=== PATIENT | male | born 1970 | race African-American/Black ===

== ENCOUNTER 2019-03-27 09:27 | Observation (INO) | payer MEDICARE, MEDICAID ==
[2019-03-27 10:03] LABS: #Lymphocytes 0.8 thou/uL (1.20-3.40); #Monocytes 0.2 thou/uL (0.11-0.59); %Eosinophils 0.1 % (0.0-10.0); %Lymphocytes 16.4 % (21.0-51.0); %Monocytes 3.3 % (0.0-10.0); %Neutrophils 80.1 % (42.0-75.0); Hemoglobin 13.4 g/dL (14.0-18.0); Mean Corpuscular HGB CONC 32.2 g/dL (32.0-36.0); Mean Corpuscular Hemoglobin 29.4 pg (27.0-31.0); Mean Corpuscular Volume 91.2 fL (78.0-98.0); Mean Platelet Volume 7.6 fL (7.4-10.4); Platelet Count 229 thou/uL (130-400); RBC Distribution Width 13.4 % (11.5-14.5); Red Blood Cell (RBC) Count 4.55 mill/uL (4.70-6.10); White Blood Cell (WBC) Count 5.1 thou/uL (4.8-10.8)
[2019-03-27 10:26] LABS: ALT (SGPT) 90 U/L (8-55); AST (SGOT) 66 U/L (5-34); Alkaline Phosphatase 211 U/L (40-150); Anion Gap 13 mmol/L (10-20); BUN (Urea Nitrogen) 24 mg/dL (8.9-20.6); Bilirubin, Total 0.4 mg/dL (0.2-1.2); Calc. Creatinine Clearance 0 mL/min (70-130); Calcium 10.3 mg/dL (7.8-10.44); Carbon Dioxide 28 mmol/L (22-29); Chloride 103 mmol/L (98-107); Estimated GFR-MDRD 60; Globulin 3.8 g/dL (2.4-3.5); Glucose 190 mg/dL (70-105); Potassium 3.7 mmol/L (3.5-5.1); Protein, Total 7.8 g/dL (6.0-8.3); Sodium 140 mmol/L (136-145)
--- NOTE | 2019-03-27 11:23 | RAD ---
XR Chest 1 View Portable History: Chest pain Comparison: Radiograph 2016 of the abdomen Findings: Lungs are markedly hypoinflated. Likely gaseous distention of the large bowel and less like ly free intraperitoneal gas. No pneumothorax. No effusion. Impression: 1. Hypoinflation with vascular crowding and bibasilar atelectasis. 2. Likely largely distended gaseous filled loops of large bowel and stomach and less likely free intr aperitoneal gas. If there is concern, CT recommended.
[2019-03-27] MEDS ORDERED: Lorazepam 2 MG/ML VIAL ONE (11:32)
--- NOTE | 2019-03-27 12:37 | CT ---
CT BRAIN: DATE: 03/27/2019. PROVIDED CLINICAL HISTORY: Altered mental status. FINDINGS: No comparisons. The ventricular system appears normal in size and morphology. There is no evidence for intracranial hemorrhage or mass effect. The extracranial soft tissues and osseous structures dem onstrate an unremarkable CT appearance. IMPRESSION: No evidence for an intracranial hemorrhage or mass effect. POS: OFF
--- NOTE | 2019-03-27 13:52 | ULT ---
Right upper quadrant sonogram HISTORY: Abnormal liver function tests. FINDINGS: Extensive patient motion and combativeness precludes effective imaging. Liver not well deli neated. Gallbladder not visualized. IMPRESSION: Nondiagnostic exam. CT might be considered based on patient's inability to cooperate.
[2019-03-27] MEDS ORDERED: Piperacillin/Tazobactam 4.5 GM VIAL ONE (14:48)
[2019-03-27] MEDS ORDERED: Lorazepam 2 MG/ML VIAL SLOW IVP PRN (15:21)
[2019-03-27] MEDS ORDERED: Ondansetron ODT 4 MG TAB PO PRN (15:21)
[2019-03-27] MEDS ORDERED: Acetaminophen 325 MG TAB PO PRN (15:21)
--- NOTE | 2019-03-27 16:08 | HP ---
PRIMARY CARE PROVIDER: Tiago Robin DO [facility] I have discussed the patient's situation with the [employer] tree [employer] worker. He is severely mentally challenged. He apparently this morning had spells of eyes rolled back, shaking and falling out of his chair x2. He was transferred here and evaluated. He is nonverbal, gives no history, and is aggressively resistant to physical examination. PAST MEDICAL HISTORY: Pertinent for hypertension, mental retardation, and hypothyroidism. On pravastatin. PAST SURGICAL HISTORY: Unknown. SOCIAL HISTORY: Nontobacco user, nonalcohol user, in a care facility with caregivers. I have nobody to assist me with resuscitation status, therefore, he is full code. CURRENT MEDICATIONS: 1. Loratadine 10 mg a day. 2. Levothyroxine 50 mcg a day. 3. Atenolol 25 mg a day. 4. Colace 100 mg a day. 5. Pravastatin 20 mg a day. 6. Amitiza 24 mcg, unknown dose and unknown frequency. ALLERGIES: HE IS LISTED ALLERGIC TO SCOPOLAMINE AND NSAIDS. I AM UNABLE TO GET A FAMILY HISTORY FROM HIM, UNABLE TO GET ANY REVIEW OF SYSTEMS FROM HIM. PHYSICAL EXAMINATION: GENERAL: In the emergency room, he is nonverbal, curled up in a position and uncooperative. VITAL SIGNS: Blood pressure 100/67, pulse 88, respirations 17, and temperature 97.6. HEENT: Examination of his eyes, able to get a brief look at his pupils, they were round. I was not able to examine the extraocular movements, but his sclerae are white. Tympanic membranes are occluded with wax. Nose appears clear. He will not open his mouth. NECK: No jugular venous distention, adenopathy or thyromegaly noted. CHEST: Clear to auscultation and percussion. HEART: Regular rate and rhythm. First and second heart sounds were clear. I did not appreciate any hepatosplenomegaly. EXTREMITIES: Trace edema with no cyanosis or clubbing. SKIN: Warm and dry. LYMPHATIC SURVEY: Negative for tender or swollen lymph nodes. NEUROLOGICAL: Facies are symmetric. He moves all extremities and toes are downgoing. His deep tendon reflexes in his knees are grossly normal. DIAGNOSTIC DATA: Abdominal ultrasound was of very poor quality. Brain CT demonstrated no acute process, reviewed by me. Chest x-ray revealed a massive amount of gas in his abdominal viscera, his lung bronson are grossly clear, also reviewed by me. The patient had a CT of his abdomen done, which revealed fluid-filled loops and fecal impaction. Previous abdominal x-ray done in 2016 reveals similar findings to today. LABORATORY DATA: Elevated prolactin at 21, bilirubin was normal at 0.4, AST was 66, ALT was 90, and alk phos was 211. Creatinine was 1.5 and BUN is 24. Lactic acid is 2.4. White count is 5100 with a mild neutrophilia. Hemoglobin is 13.4 and platelet count is 229,000. CHIEF DIAGNOSES: Altered mental status, possible seizure disorder with elevated prolactin, history of jerking, abnormal eye motions, severe mental retardation, hypertension, hypothyroidism, dyslipidemia, and distended loops of bowel. PLAN: 1. Repeat prolactin in the morning. Monitor for seizure disorder. Obtain EEG and Neurology consultation. No medicines for the immediate time. 2. Selected home medicines. 3. Suspect once again Fleet enema. This patient will not allow a rectal examination to be done. Hopefully, we can get a Fleet enema done and see if this will relieve his distended bowel. Overall, this patient's care is dramatically hindered by his unfortunate mental status and lack of cooperation. Job ID: [id number]
[2019-03-27 16:14] VITALS: BMI 25.3
[2019-03-27] MEDS: Sodium Chloride 0.9% 1,000 ML IV SCH (17:44)
--- NOTE | 2019-03-28 07:08 | PDOC.PN ---
- Subjective Encounter Start Date: 03/28/19 Encounter Start Time: 07:06 Subjective: calm, awake, non-verbal - Objective Resuscitation Status - Order Detail: 03/27/19 15:14 Resuscitation Status Routine Resuscitation Status: FULL: Full Resuscitation MAR Reviewed: Yes Vital Signs & Weight: Vital Signs (12 hours) Temp Pulse Resp BP BP Pulse Ox 03/28/19 03:49 99.2 F 103 H 16 139/85 94 L 03/28/19 00:00 99.8 F H 108 H 18 133/65 91 L 03/27/19 22:15 98.5 F 03/27/19 20:00 100.1 F H 106 H 20 120/62 91 L Weight Weight 119 lb 9.6 oz I&O: 03/27/19 03/28/19 03/29/19 06:59 06:59 06:59 Intake Total 865 Balance 865 Result Diagrams: 03/28/19 13:17 03/28/19 13:17 Phys Exam - Physical Examination Neck: no JVD Respiratory: clear to auscultation bilateral Cardiovascular: RRR, no significant murmur Gastrointestinal: soft, non-tender, positive bowel sounds Musculoskeletal: no edema Dx/Plan (1) Seizure Code(s): R56.9 - UNSPECIFIED CONVULSIONS Status: Acute (2) Intellectual disability Code(s): F79 - UNSPECIFIED INTELLECTUAL DISABILITIES Status: Chronic (3) HTN (hypertension) Code(s): I10 - ESSENTIAL (PRIMARY) HYPERTENSION Status: Chronic Qualifiers: Hypertension type: essential hypertension Qualified Code(s): I10 - Essential (primary) hypertension (4) Hypothyroid Code(s): E03.9 - HYPOTHYROIDISM, UNSPECIFIED Status: Chronic Qualifiers: Hypothyroidism type: unspecified Qualified Code(s): E03.9 - Hypothyroidism , unspecified - Plan awaiting morning lab -: eating and drinking -: ADD: refuses lo, await neuro consult * .
[2019-03-28] MEDS ORDERED: Amlodipine 10 MG TAB PO SCH (09:00)
[2019-03-28] MEDS: Atenolol 25 MG TAB PO SCH (09:59)
[2019-03-28] MEDS: Docusate 100 MG CAP PO SCH (10:03)
[2019-03-28] MEDS: Levothyroxine Sodium 50 MCG TAB PO SCH (10:03)
[2019-03-28] MEDS: Polyethylene Glycol 3350 17 GM Packet PO SCH ×2 (10:03→21:32)
[2019-03-28] MEDS: Lubiprostone 24 MCG CAP PO SCH ×2 (10:03→21:31)
[2019-03-28] MEDS: Bisacodyl 10 MG SUPP PR SCH ×2 (10:04→10:30)
[2019-03-28] MEDS: Enoxaparin Sodium 40 MG/0.4 ML SYRINGE SC SCH (10:04)
[2019-03-28] MEDS: Amlodipine 5 MG TAB PO SCH (10:04)
[2019-03-28] MEDS: Sodium Chloride 0.9% 1,000 ML IV SCH ×2 (10:04→21:30)
[2019-03-28 13:30] LABS: #Lymphocytes 0.7 thou/uL (1.20-3.40); #Monocytes 0.2 thou/uL (0.11-0.59); #Neutrophils 2.4 thou/uL (1.40-6.50); %Basophils 0.2 % (0.0-1.0); %Eosinophils 0.1 % (0.0-10.0); %Lymphocytes 21.7 % (21.0-51.0); %Monocytes 5.2 % (0.0-10.0); %Neutrophils 72.7 % (42.0-75.0); Hemoglobin 11.9 g/dL (14.0-18.0); Mean Corpuscular HGB CONC 33.1 g/dL (32.0-36.0); Mean Corpuscular Hemoglobin 29.5 pg (27.0-31.0); Mean Corpuscular Volume 89.2 fL (78.0-98.0); Mean Platelet Volume 7.7 fL (7.4-10.4); Platelet Count 198 thou/uL (130-400); RBC Distribution Width 13.5 % (11.5-14.5); Red Blood Cell (RBC) Count 4.03 mill/uL (4.70-6.10); White Blood Cell (WBC) Count 3.3 thou/uL (4.8-10.8)
[2019-03-28 13:51] LABS: Anion Gap 12 mmol/L (10-20); BUN (Urea Nitrogen) 22 mg/dL (8.9-20.6); Calc. Creatinine Clearance 78 mL/min (70-130); Calcium 9.3 mg/dL (7.8-10.44); Carbon Dioxide 24 mmol/L (22-29); Chloride 109 mmol/L (98-107); Estimated GFR-MDRD Greater than 90; Glucose 82 mg/dL (70-105); Potassium 3.5 mmol/L (3.5-5.1); Sodium 141 mmol/L (136-145)
[2019-03-28] MEDS ORDERED: Bisacodyl 5 MG TAB PO SCH (14:15)
--- NOTE | 2019-03-28 16:11 | PDOC.EVN ---
Event Note - Event Note Event Note: this patient should have been oon observation basis since day one
[2019-03-28] MEDS ORDERED: Simvastatin 5 MG TAB PO SCH (21:00)
[2019-03-28] MEDS ORDERED: Pravastatin Sodium 20 MG TAB PO SCH (21:00)
[2019-03-28] MEDS: levETIRAcetam 500 MG TAB PO SCH (21:31)
[2019-03-28] MEDS: Bisacodyl 5 MG TAB PO SCH (21:31)
--- NOTE | 2019-03-28 23:55 | CON ---
DATE OF CONSULTATION: 03/28/2019 CONSULTING PHYSICIAN: Hospitalist Service. IMPRESSION: 1. New onset seizure. 2. Severe mental retardation. PLAN: 1. Add Keppra 500 mg twice a day. 2. The patient can be discharged. HISTORY OF PRESENT ILLNESS: Mr. Quiroga is a 48-year-old black gentleman with a past history of mental retardation. He apparently was witnessed to have a generalized tonic-clonic seizure. He was brought into the emergency room for evaluation. A CT scan of the brain was normal. His lab work was all unremarkable other than mildly elevated BUN and creatinine. He has not had any further seizure activity. PAST MEDICAL HISTORY: Hypothyroidism, hyperlipidemia. FAMILY HISTORY: Unknown. ALLERGIES: NONSTEROIDALS. MEDICATIONS: Medication list was reviewed. REVIEW OF SYSTEMS: Ten-system review of systems is not obtainable due to his nonverbal state. PHYSICAL EXAMINATION: GENERAL: He is a thin, middle-aged man, lying in bed, in no acute distress. VITAL SIGNS: Blood pressure 116/74, pulse 93, respirations 14, temperature 97.5. HEENT: Pupils are equal. Conjunctivae are clear. Oropharynx is a bit dry. NECK: No lymphadenopathy. EXTREMITIES: No cyanosis or edema. NEUROLOGIC: He was awake, but limitedly cooperative. He was nonverbal. His face appeared to be symmetric. He had symmetric tone in the extremities. He had symmetric responses to stimulation. His plantar responses were downgoing. No abnormal movements were seen. LABORATORY DATA: Laboratory studies were reviewed. His prolactin was 21.03. SUMMARY: Middle-aged man with a history of mental retardation, who presents with generalized seizure. Given his neurologic health, I suspect that this will be a recurrent problem. I will go ahead and start him on a full dose of Keppra. He can continue his Depakote as previously ordered. Job ID: [id number]
[2019-03-29 07:32] VITALS: BP 117/72; TEMP 96.6
[2019-03-29] MEDS: Sodium Chloride 0.9% 1,000 ML IV SCH (07:51)
--- NOTE | 2019-03-29 08:25 | DIS ---
DATE OF ADMISSION: 03/27/2019 DATE OF DISCHARGE: 03/29/2019 PRIMARY CARE PROVIDER: Dr. Tiago Robin. FINAL DIAGNOSES: New-onset seizure disorder, hypertension, hypothyroidism, intellectual disability. DISCHARGE MEDICATIONS: 1. New Keppra 500 mg p.o. b.i.d. 2. Old Namenda 5 mg b.i.d. 3. Pravastatin 20 mg a day. 4. Amitiza 24 mcg b.i.d. 5. Seroquel 200 mg at bedtime. 6. Levothyroxine 50 mcg a day. 7. Atenolol 12.5 mg a day. ALLERGIES: TO NSAIDS, SCOPOLAMINE. PENDING AT TIME OF DISCHARGE: Nothing. CODE STATUS: Full. HOSPITAL COURSE: The patient was brought to the emergency room with altered mental status. He lives in a fdc. In discussion with the fdc, he had had shaking, eyes rolling back, and fell out of a chair. In the emergency room, he had a brain CT that was unremarkable. His initial laboratory, comprehensive metabolic profile showed a creatinine 1.5, followup was 0.87. Lytes were balanced. He had a minor elevation of AST and ALT. I ordered a prolactin stat, it was 21, which is elevated. As per Neurology consult, he was seen by Dr. Mathews. Followup prolactin was normal. Consultation by Dr. Mathews. He agreed with the seizure disorder. Ordered a full-dose Keppra 500 mg p.o. b.i.d. The patient has had no further spells during his hospital stay. He is being discharged back to his fdc for followup with Dr. Robin in one week. Job ID: [id number]
[2019-03-29] MEDS: Bisacodyl 5 MG TAB PO SCH (08:43)
[2019-03-29] MEDS: Polyethylene Glycol 3350 17 GM Packet PO SCH (08:44)
[2019-03-29] MEDS: Docusate 100 MG CAP PO SCH (08:44)
[2019-03-29] MEDS: Amlodipine 5 MG TAB PO SCH (08:45)
[2019-03-29] MEDS: Enoxaparin Sodium 40 MG/0.4 ML SYRINGE SC SCH (08:45)
[2019-03-29] MEDS: Atenolol 25 MG TAB PO SCH (08:46)
[2019-03-29] MEDS: levETIRAcetam 500 MG TAB PO SCH (08:46)
[2019-03-29] MEDS: Lubiprostone 24 MCG CAP PO SCH (08:47)
[2019-03-29] MEDS: Levothyroxine Sodium 50 MCG TAB PO SCH (08:47)
--- NOTE | 2019-03-31 16:10 | EKG ---
Test Reason : AMS Blood Pressure : / mmHG Vent. Rate : 104 BPM Atrial Rate : 104 BPM P-R Int : 144 ms QRS Dur : 068 ms QT Int : 302 ms P-R-T Axes : 023 -13 -10 degrees QTc Int : 397 ms Sinus tachycardia Moderate voltage criteria for LVH, may be normal variant Nonspecific T wave abnormality Abnormal ECG Confirmed by MERCY CALLAHAN M.D. ([id number]), editor map MARIETTA JUNIOR ([id number]) on 03/31/2019 4:10:27 PM Referred By: Confirmed By:MERCY CALLAHAN M.D.
== END 2019-03-29 10:01 ==
LOC: ERS 09:27 → 2SE 13:31
PROVIDERS: ADMIT Internal Medicine; ATTEND Internal Medicine
DX: R56.9 Unspecified convulsions (principal); I10 Essential (primary) hypertension; E03.9 Hypothyroidism, unspecified; E78.5 Hyperlipidemia, unspecified; F72 Severe intellectual disabilities; J98.11 Atelectasis; F90.9 Attention-deficit hyperactivity disorder, unspecified type; F31.9 Bipolar disorder, unspecified; Z88.6 Allergy status to analgesic agent; Z88.8 Allergy status to other drugs, medicaments and biological substances; Z79.899 Other long term (current) drug therapy
CPT/HCPCS: 70450; 71045; 76705; 80048; 80053; 83605; 84146 ×2; 84484; 85025 ×2; 87040; 93005; 95816; 95819; 96361 ×4; 96365; 96367; 96372 ×2; 96375; 99285; G0378; 36415; J1650; J2060; J2543; J3370

== ENCOUNTER 2019-08-28 10:35 | Emergency (ER) | payer MEDICARE, MEDICAID ==
--- NOTE | 2019-08-28 11:14 | RAD ---
EXAM: 3 views of the right ankle HISTORY: Ankle pain COMPARISON: None FINDINGS: 3 views of the right ankle shows no evidence of acute fracture or dislocation. No soft tiss ue swelling is seen. No degenerative changes are present. IMPRESSION: No evidence of acute osseous abnormality.
--- NOTE | 2019-08-28 11:16 | RAD ---
Exam: XR Foot Rt 3 View STANDARD HISTORY: Right foot and ankle pain. Gait changes. COMPARISON: None FINDINGS: A true AP projection is not provided, and crime scene evidence technician notes that this is difficult to obtain due to patient's immobility. No acute fracture, dislocation, or other acute osseous abnormality is otherwise identified. IMPRESSION: No acute osseous abnormality is identified.
--- NOTE | 2019-08-28 11:24 | RAD ---
EXAM: 3 views of the right shoulder HISTORY: Shoulder pain COMPARISON: None FINDINGS: There is no evidence of acute fracture or dislocation. No degenerative changes are present. No soft tissue swelling is seen. The visualized thorax is unremarkable. IMPRESSION: No evidence of acute osseous abnormality.
== END 2019-08-28 11:39 | disposition home or self-care (01) ==
LOC: SCSER 10:35
DX: M25.674 Stiffness of right foot, not elsewhere classified (principal); M25.611 Stiffness of right shoulder, not elsewhere classified; E03.9 Hypothyroidism, unspecified; I10 Essential (primary) hypertension; E78.5 Hyperlipidemia, unspecified; F90.9 Attention-deficit hyperactivity disorder, unspecified type; F31.9 Bipolar disorder, unspecified; Z79.899 Other long term (current) drug therapy

== ENCOUNTER 2019-10-20 09:39 | Inpatient (IN) | payer MEDICARE, MEDICAID ==
[~2019-10-20 09:39] MED LIST: Dextrose 50% Abboject 50 ML SYRINGE ONE; EPINEPHrine 1 MG/10 ML Abboject SYRINGE ONE; Sodium Bicarb 50 MEQ/50 ML Abboject 8.4% SYRINGE ONE
[2019-10-20] MEDS ORDERED: Rocuronium Bromide 10 MG/ML (10ML VIAL) ONE (09:42)
[2019-10-20] MEDS ORDERED: Ketamine 50 MG/ML (10ML VIAL) ONE (09:45)
[2019-10-20] MEDS ORDERED: Norepinephrine 8 MG/0.9% NS 250 ML ONE ×2 (09:59→14:51)
[2019-10-20] MEDS ORDERED: fentaNYL Citrate/PF 2,000 MCG in Sodium Chloride 0.9% 60 ML IV SCH ×2 (10:19→15:17)
[2019-10-20] MEDS ORDERED: DOPamine 400 MG/D5W 250 ML 250 ML ONE (10:26)
--- NOTE | 2019-10-20 10:31 | RAD ---
Chest one view HISTORY: Central line placement. COMPARISON: 10/20/2019. FINDINGS: Tip of a right internal jugular central venous catheter projects over the cavoatrial juncti on. No evidence of pneumothorax. Other findings are stable. IMPRESSION: Right internal jugular central venous catheter is in good radiographic position.
[2019-10-20] MEDS ORDERED: levETIRAcetam In NaCl (Iso-Os) 1,000 MG in Premix Bag 1 BAG IVPB SCH (10:45)
[2019-10-20 10:50] LABS: INR-International Normal Ratio 1.5; Prothrombin Time 17.7 SEC (12.0-14.7)
[2019-10-20 11:01] LABS: ALT (SGPT) 59 U/L (8-55); AST (SGOT) 38 U/L (5-34); Albumin 2.5 g/dL (3.5-5.0); Alkaline Phosphatase 169 U/L (40-110); Anion Gap 24 mmol/L (10-20); BUN (Urea Nitrogen) 45 mg/dL (8.4-25.7); Bilirubin, Total 0.5 mg/dL (0.2-1.2); CK (CPK) 230 U/L (30-200); Calc. Creatinine Clearance 0 mL/min (70-130); Carbon Dioxide 13 mmol/L (22-29); Chloride 111 mmol/L (98-107); Estimated GFR-MDRD 20; Globulin 2.6 g/dL (2.4-3.5); Glucose 105 mg/dL (70-105); Potassium 4.7 mmol/L (3.5-5.1); Protein, Total 5.1 g/dL (6.0-8.3); Sodium 143 mmol/L (136-145)
--- NOTE | 2019-10-20 11:07 | RAD ---
PORTABLE CHEST ONE VIEW: 10/20/2019 10:00 a.m. HISTORY: Altered mental status. Seizure. COMPARISON: 03/27/2019 FINDINGS: There is an endotracheal tube with the tip just below the level of the clavicular heads. A nasogastri c tube can be traced into the stomach. The heart size is normal. No lobar consolidation, pneumothorac es or large effusions are seen. POS: [facility]
[2019-10-20 11:14] LABS: Band 26 % (5-11); Hemoglobin 12.7 g/dL (14.0-18.0); Lymphocytes 46 % (21-51); MDiff Complete? YES; Mean Corpuscular Hemoglobin 27.3 pg (27.0-31.0); Mean Corpuscular Volume 88.2 fL (78.0-98.0); Mean Platelet Volume 9.7 fL (7.4-10.4); Metamyelocyte 22 % (0-0); Monocytes 6 % (0-10); Platelet Count 228 thou/uL (130-400); RBC Distribution Width 14.7 % (11.5-14.5); Red Blood Cell (RBC) Count 4.64 mill/uL (4.70-6.10); Reflex for Review?? YES; White Blood Cell (WBC) Count 1.3 thou/uL (4.8-10.8)
--- NOTE | 2019-10-20 11:21 | CT ---
CT BRAIN WITHOUT CONTRAST: HISTORY: Altered mental status COMPARISON: 03/27/2019. FINDINGS: No evidence of acute infarct, hemorrhage, midline shift or abnormal extra-axial fluid collections is seen. The ventricular size is appropriate and the basilar cisterns are patent. The bony calvarium is intact. The visualized paranasal sinuses and mastoid air cells are well aerated. IMPRESSION: No CT evidence of acute intracranial process.
[2019-10-20] MEDS ORDERED: Cefepime 2 GM VIAL ONE (11:32)
[2019-10-20 11:37] LABS: Actual Bicarbonate (HCO3a) 13.8 mEq/L (22-28); Analyzer IN Cardio ER; Base Excess (BEa) -13.8 mEq/L (-2.0 to +3.0); CO2 Tension 38.1 mmHg (35.0-45.0); Calcium, Ionized 1.26 mmol/L (1.12-1.30); Carboxyhemoglobin (COHb) 0.5 gm% (0.0-3.0); Hemoglobin (Hb) 13.3 g/dL (14.0-18.0); O2 Tension (PaO2) 212.6 mmHg (80.0-100.0); Potassium - ABG Lab 4.21 mmol/L (3.70-5.30)
[2019-10-20 11:38] LABS: ALV-art Gradient 96.275 (0-20); Puncture Site LBA; pH, Arterial 7.18 (7.35-7.45)
[2019-10-20 11:40] LABS: D-Dimer Test 7.36 *mcg/mL (0.27-0.43)
[2019-10-20 11:40] LABS: Acetaminophen Less than 6.0 mcg/mL (10.0-30.0); Alcohol Less than 10 mg/dL (Less than 10); Salicylate Less than 8.0 mg/dL (15.0-30.0)
[2019-10-20] MEDS ORDERED: Pantoprazole 40 MG VIAL ONE (13:06)
--- NOTE | 2019-10-20 13:10 | HP ---
PRIMARY CARE PHYSICIAN: Dr. Tiago Robin. REASON FOR ADMISSION: Acute respiratory failure, metabolic acidosis, acute kidney failure. HISTORY OF PRESENT ILLNESS: A 49-year-old who is severely mentally challenged and nonverbal status. Lives in alf. This morning around eight o'clock, his hosiery looper was giving him medication and as per report, the patient took medication and after 15 minutes or 20 minutes later when hosiery looper returned back to his place, he was found lethargic and that is why paramedics was called. On the road, the patient was agitated and the patient was not allowing to put any IV access and when he arrived to emergency room, the patient was pretty much completely out and he required endotracheal intubation and mechanical ventilatory support. Routine blood test done in the emergency room showed acute kidney failure with severe lactic acidosis and metabolic acidosis as well as abnormal LFT and he has underlying leukopenia and bandemia. ER physician tried to do lumbar puncture, but it was completely dry tap. The patient was given IV fluid and he was hypotensive and that is why he was given Levophed as well as dopamine was started. The patient's blood pressure was improving. ALLERGIES: NSAID, SCOPOLAMINE PATCH. CURRENT MEDICATION: 1. Claritin 10 mg. 2. Levothyroxine 50 mcg. 3. Atenolol 25 mg. 4. Pravastatin 20 mg. 5. Amitiza 24 mcg. Dose for all this medication is not able to verify at this point. PAST MEDICAL HISTORY: Severe mental retardation, hypertension, hypothyroidism, hyperlipidemia, seizure disorder. PAST SURGICAL HISTORY: Unknown. PSYCHIATRIC HISTORY: ADHD, bipolar disorder. SOCIAL HISTORY: The patient lives in alf. No history of tobacco, alcohol, or illicit drug abuse. The patient is nonverbal. FAMILY HISTORY: Unable to obtain. REVIEW OF SYSTEMS: Unable to obtain because of intubated status as well as due to severe mental retardation. EMERGENCY ROOM COURSE: The patient has received cefepime, Levaquin, and vancomycin. The patient is on Levophed drip, dopamine drip, and the patient has received IV fluid. PHYSICAL EXAMINATION: VITAL SIGNS: Blood pressure 83/41, improved to 99/60; pulse on admission 123, improved to 118; respiratory rate 20, temperature 97.3, saturation 100% on ventilator. Weight 54 kg. GENERAL: The patient is chronically ill, intubated, not responsive. HEENT: Head; normocephalic, atraumatic. Eyes; pupils are round and reactive to light. Extraocular muscle intact. No gag reflex. Endotracheal tube in place. NECK: Supple. No JVD. No meningeal signs of irritation. LUNGS: Clear to auscultation without any rhonchi or rales. CARDIAC: S1 and S2, regular. Tachycardia. No murmur. No gallop. No rub. ABDOMEN: Soft, bowel sounds present, nontender, nondistended. No organomegaly. No mass. EXTREMITIES: Chronic skin changes. Dry skin. No edema. Good distal pulsation. GENITALIA: Within normal limit. NEUROLOGIC: Unable to assess at this point. PSYCHIATRIC: Unable to assess at this point. SIGNIFICANT LABORATORY DATA: EKG showing sinus tachycardia. CT brain reported as no acute intracranial process. Chest x-ray reported as no evidence of acute cardiopulmonary process. Endotracheal tube in place. Right IJ in place. Influenza screen, negative. CBC; WBC 1.3, hemoglobin 12.7, platelet 228. INR 1.5, fibrinogen 543. D-dimer 7.36. ABG; pH 7.18, CO2 of 38.1, O2 of 212.6, bicarb 13.8, saturation 99.2 on ventilator. Sodium 143, potassium 4.7, chloride 111, carbon dioxide 13, anion gap 24, BUN 45, creatinine 3.94, glucose 105, calcium 9.0, lactic acid 10.0. LFT; AST 38, ALT 59, alkaline phosphatase 169, albumin 2.5. Troponin 0.024. BNP 124.5. Serum drug screen, negative. ASSESSMENT: 1. Acute respiratory failure with hypoxia. 2. Acute kidney failure. 3. Severe metabolic acidosis. 4. Abnormal LFT. 5. Septic shock. 6. Lactic acidosis. 7. Severe mental retardation. 8. Seizure disorder. PLAN: 1. Admission in ICU, pulmonary consultation. Start broad-spectrum antibiotic therapy with vancomycin, cefepime. Continue Keppra. Nephrology consultation. Neurology consultation. Vasopressor. Aggressive IV fluid support. Bicarbonate with IV fluid. Follow up on culture result. Lumbar puncture. 2. Deep venous thrombosis prophylaxis, heparin 5000 units subcu twice daily. 3. GI prophylaxis, Protonix 40 mg IV daily. CODE STATUS: The patient will be kept as a full code as the patient does not have any surrogate decision maker. DISPOSITION PLAN: Based on clinical course. CONDITION: Critical. PROGNOSIS: Guarded. Job ID: [id number]
[2019-10-20 13:43] LABS: Lactic Acid 7.1 mmol/L (0.5-2.2)
--- NOTE | 2019-10-20 14:19 | RAD ---
Lumbar puncture fluoroscopic guided HISTORY: Meningitis. FINDINGS: Sterile technique, buffered local anesthesia, fluoroscopic guidance, and a right posterolat eral L2-3 approach were used to carefully advance the tip of a 20-gauge spinal needle to the thecal sac. A 25 cm fluid column of CSF was measured. A total volume of 8 cc clear CSF was collected and sent to laboratory for analysis. Needle were was r emoved. Patient tolerated the procedure well and was returned in unchanged condition. IMPRESSION: Elevated opening CSF pressure 25 cm. Technically successful lumbar puncture.
[2019-10-20 14:50] LABS: CSF, Glucose 85 mg/dl (40-70); CSF, Protein 21 mg/dL (15-40); Color Of CSF Supernatant COLORLESS (Colorless); Unspun CSF Color COLORLESS (Colorless)
[2019-10-20 14:51] LABS: Tube # 2
[2019-10-20] MEDS ORDERED: Norepinephrine 8 MG/0.9% NS 250 ML IVPB SCH (14:55)
[2019-10-20] MEDS ORDERED: Propofol BOLUS 1,000 MG/100 ML VIAL IV PRN ×2 (14:56→15:17)
[2019-10-20] MEDS ORDERED: Morphine 2 MG/ML SYRINGE SLOW IVP PRN ×2 (14:56→15:17)
[2019-10-20] MEDS ORDERED: Fentanyl BOLUS 250 ML IVPB PRN ×2 (14:56→15:17)
[2019-10-20] MEDS ORDERED: Propofol 1,000 MG/100 ML VIAL IV PRN ×2 (14:56→15:17)
[2019-10-20] MEDS ORDERED: Lorazepam 2 MG/ML VIAL SLOW IVP PRN (14:56)
[2019-10-20] MEDS ORDERED: DISCONTINUE PREVIOUS NARCOTIC PAIN MEDICATIONS AND BENZODIAZEPINES FS SCH ×2 (14:56→15:17)
[2019-10-20] MEDS ORDERED: Sodium Chloride 0.9% 1,000 ML IV SCH (15:00)
[2019-10-20] MEDS ORDERED: DOPamine 400 MG/D5W 250 ML 250 ML IVPB SCH (15:00)
[2019-10-20] MEDS ORDERED: Ondansetron PF 4 MG/2 ML Vial IVP PRN (15:14)
[2019-10-20] MEDS ORDERED: Artificial Tears 18 DROP/0.9 ML EA EYE PRN (15:14)
[2019-10-20] MEDS ORDERED: Ventilator Sedation Protocol 1 EACH FS SCH (15:14)
[2019-10-20] MEDS ORDERED: Bisacodyl 10 MG SUPP PR PRN (15:14)
[2019-10-20 15:30] LABS: CSF Source CSF; Clarity Clear (Clear); Tube # 1; Tube # 4
[2019-10-20 15:36] VITALS: BMI 21.1
[2019-10-20 15:48] LABS: Actual Bicarbonate (HCO3a) 13.2 mEq/L (22-28); Base Excess (BEa) -13.2 mEq/L (-2.0 to +3.0); CO2 Tension 32.1 mmHg (35.0-45.0); Calcium, Ionized 1.09 mmol/L (1.12-1.30); Hemoglobin (Hb) 10.1 g/dL (14.0-18.0); Potassium - ABG Lab 3.93 mmol/L (3.70-5.30)
[2019-10-20 15:51] LABS: ALV-art Gradient 57.305 (0-20); O2 Tension (PaO2) 52.3 mmHg (80.0-100.0); Puncture Site LRA; pH, Arterial 7.23 (7.35-7.45)
--- NOTE | 2019-10-20 16:09 | ULT ---
RENAL ULTRASOUND: 10/20/19 HISTORY: Acute renal insufficiency. Evaluation for obstruction. Real time imaging of the right and left kidneys were performed. The left kidney measures 8.4 cm and r ight kidney 9.2 cm in size. No signs of cyst, mass or obstruction. Marin catheter is present within t he bladder. There is some mild ascites noted. Exam is limited due to patient's body habitus and immob ility. IMPRESSION: 1. No evidence of obstruction of either kidney. 2. Fairly minimal ascites noted. POS: OFF
[2019-10-20] MEDS: Vasopressin 40 UNIT, Admixture Fee 1 EACH in Sodium Chloride 0.9% 100 ML IV SCH (16:16)
[2019-10-20] MEDS: Hydrocortisone Sod Succ/PF 100 mg/2 ml Vial IVP SCH ×2 (16:45→23:19)
[2019-10-20] MEDS ORDERED: Fleet Enema 133 ML BOT PR SCH (17:00)
[2019-10-20] MEDS: metroNIDAZOLE 500 MG in Premix Bag 1 BAG IVPB SCH ×2 (18:19→23:18)
[2019-10-20] MEDS ORDERED: Sodium Bicarb 50 MEQ/50 ML VIAL IVP SCH (18:30)
[2019-10-20] MEDS ORDERED: Calcium Chloride 13.6 MEQ in Sodium Chloride 0.9% 100 ML IVPB SCH (18:30)
[2019-10-20] MEDS: Sodium Bicarbonate 150 MEQ in Dextrose 5% in Water 1,000 ML IV SCH (18:46)
--- NOTE | 2019-10-20 19:14 | CON ---
DATE OF CONSULTATION: 10/20/2019 CONSULTING PHYSICIAN: Dr. Richter. REASON FOR CONSULTATION: Acute kidney injury. REASON FOR ADMISSION: Altered mentation. HISTORY OF PRESENT ILLNESS: This is a 49-year-old male with history of seizure disorder, mental retardation, and hypothyroidism, came to the hospital with above complaints, and Nephrology was consulted. The patient was found to have acute kidney injury. The patient is currently intubated, not able to give a history. PAST MEDICAL HISTORY: Positive for severe mental retardation, hypertension, hypothyroidism, hyperlipidemia, and seizure disorder. PAST SURGICAL HISTORY: Unknown. HOME MEDICATIONS: 1. Claritin. 2. Levothyroxine. 3. Atenolol. 4. Pravastatin. 5. Amitiza. ALLERGIES: 1. NSAID. 2. SCOPOLAMINE. SOCIAL HISTORY: No smoking, alcohol, or illicit drug use. FAMILY HISTORY: No history of kidney disease. REVIEW OF SYSTEMS: CONSTITUTIONAL: Negative for weight loss or gain, ability to conduct usual activities. SKIN: Negative for rash, itching. EYES: Negative for double vision, pain. ENT/MOUTH: Negative for nose bleeding, neck stiffness, pain, tenderness. CARDIOVASCULAR: Negative for palpitations, dyspnea on exertion, orthopnea. RESPIRATORY: Negative for shortness of breath, wheezing, cough, hemoptysis, fever or night sweats. GASTROINTESTINAL: Negative for poor appetite, abdominal pain, heartburn, nausea, vomiting, constipation, or diarrhea. GENITOURINARY: Negative for urgency, frequency, dysuria, nocturia. MUSCULOSKELETAL: Negative for pain, swelling. NEUROLOGIC/PSYCHIATRIC: Negative for anxiety, depression. ALLERGY/IMMUNOLOGIC: Negative for skin rash, bleeding tendency. PHYSICAL EXAMINATION: GENERAL: This is a well-built male, who is intubated. VITAL SIGNS: Temperature 98.6, pulse 118, respiratory rate 20, blood pressure 83/41. HEENT: Intubated. CV: S1 and S2 heard. Rate and rhythm regular. RESPIRATORY: Clear. GI: Abdomen is soft. MUSCULOSKELETAL: No tenderness. No edema. DERMATOLOGIC: No skin rash. NEUROLOGICAL: Intubated. LABORATORY DATA: Hemoglobin is 12.7. Potassium is 4.7, BUN is 45, creatinine is 3.9, bicarbonate is 13. Lactic acid is 10. ASSESSMENT AND PLAN: 1. Acute kidney injury, most likely secondary to volume depletion. Continue with IV hydration. Monitor. We will check renal ultrasound. Avoid nephrotoxins. 2. Lactic acidosis. Continue hydration. 3. Probable anemia. 4. Elevated liver enzymes. 5. History of seizures. 6. History of hypertension. 7. Acute hypoxic respiratory failure. Continue intubation. Plan to avoid nephrotoxins. Continue hydration. Monitor renal function. Thank you for the consult. Job ID: [id number]
[2019-10-20] MEDS: Norepinephrine 8 MG/0.9% NS 250 ML IVPB PRN ×2 (19:40→22:57)
[2019-10-20] MEDS: Senokot S 8.6-50 MG TAB PO SCH (19:44)
[2019-10-20] MEDS ORDERED: Heparin 5,000 UNITS/ML VIAL SC SCH (21:00)
[2019-10-20] MEDS: Acetaminophen 325 MG TAB PER TUBE PRN (21:49)
[2019-10-20] MEDS: Lorazepam 2 MG/ML VIAL SLOW IVP PRN (22:57)
[2019-10-21 01:44] LABS: Actual Bicarbonate (HCO3a) 10.8 mEq/L (22-28); Base Excess (BEa) -13.2 mEq/L (-2.0 to +3.0); Calcium, Ionized 1.09 mmol/L (1.12-1.30); Carboxyhemoglobin (COHb) 0.7 gm% (0.0-3.0); Hemoglobin (Hb) 12.7 g/dL (14.0-18.0); O2 Tension (PaO2) 63.4 mmHg (80.0-100.0); Potassium - ABG Lab 5.64 mmol/L (3.70-5.30); pH, Arterial 7.32 (7.35-7.45)
[2019-10-21 02:09] LABS: CO2 Tension 21.5 mmHg (35.0-45.0); Puncture Site LBR
[2019-10-21 02:10] LABS: ALV-art Gradient 159.275 (0-20)
[2019-10-21] MEDS: Acetaminophen 325 MG TAB PER TUBE PRN (02:31)
[2019-10-21] MEDS ORDERED: DOPamine 400 MG/D5W 250 ML 250 ML IVPB SCH (03:00)
[2019-10-21] MEDS: Norepinephrine 8 MG/0.9% NS 250 ML IVPB PRN ×3 (03:09→12:01)
[2019-10-21] MEDS ORDERED: DOBUTamine 250 MG/20 ML VIAL ONE (03:47)
[2019-10-21] MEDS: DOBUTamine 500 mg/250 ml 500 MG in Premix Bag 1 BAG IVPB SCH ×2 (03:55→11:42)
[2019-10-21 04:24] LABS: Actual Bicarbonate (HCO3a) 10.3 mEq/L (22-28); Base Excess (BEa) -15.2 mEq/L (-2.0 to +3.0); Calcium, Ionized 1.05 mmol/L (1.12-1.30); Carboxyhemoglobin (COHb) 1.5 gm% (0.0-3.0); Hemoglobin (Hb) 12.9 g/dL (14.0-18.0); Potassium - ABG Lab 6.23 mmol/L (3.70-5.30)
[2019-10-21 04:36] LABS: CO2 Tension 24.1 mmHg (35.0-45.0); O2 Tension (PaO2) 49.1 mmHg (80.0-100.0); Puncture Site LBR; pH, Arterial 7.25 (7.35-7.45)
[2019-10-21 04:38] LABS: ALV-art Gradient 277.275 (0-20)
[2019-10-21 05:02] LABS: Lactic Acid 9.2 mmol/L (0.5-2.2)
[2019-10-21 05:13] LABS: ALT (SGPT) 65 U/L (8-55); AST (SGOT) 124 U/L (5-34); Albumin 2.2 g/dL (3.5-5.0); Alkaline Phosphatase 137 U/L (40-110); Anion Gap 21 mmol/L (10-20); BUN (Urea Nitrogen) 55 mg/dL (8.4-25.7); Bilirubin, Total 0.8 mg/dL (0.2-1.2); Calc. Creatinine Clearance 14 mL/min (70-130); Calcium 7.6 mg/dL (7.8-10.44); Carbon Dioxide 13 mmol/L (22-29); Chloride 110 mmol/L (98-107); Estimated GFR-MDRD 18; Globulin 2.8 g/dL (2.4-3.5); Glucose 57 mg/dL (70-105); Phosphorus 6.9 mg/dL (2.3-4.7); Potassium 6.1 mmol/L (3.5-5.1); Sodium 138 mmol/L (136-145)
[2019-10-21] MEDS ORDERED: Sodium Bicarb 50 MEQ/50 ML VIAL ONE (05:44)
[2019-10-21 05:45] LABS: Hemoglobin 12.1 g/dL (14.0-18.0); Mean Corpuscular HGB CONC 31.9 g/dL (32.0-36.0); Mean Corpuscular Hemoglobin 28.4 pg (27.0-31.0); Mean Corpuscular Volume 89.2 fL (78.0-98.0); RBC Distribution Width 14.8 % (11.5-14.5); Red Blood Cell (RBC) Count 4.26 mill/uL (4.70-6.10); White Blood Cell (WBC) Count 4.1 thou/uL (4.8-10.8)
[2019-10-21] MEDS: EPINEPHrine 1 MG, Admixture Fee 1 EACH in Dextrose 5% in Water 250 ML IVPB SCH ×3 (05:48→08:57)
[2019-10-21] MEDS: Hydrocortisone Sod Succ/PF 100 mg/2 ml Vial IVP SCH ×2 (05:52→11:46)
[2019-10-21] MEDS: metroNIDAZOLE 500 MG in Premix Bag 1 BAG IVPB SCH ×2 (05:53→11:46)
--- NOTE | 2019-10-21 06:26 | PDOC.EVN ---
Event Note - Event Note Event Note: Patient had hypotension and hypoxia through much of the night in spite of aggressive hydration, pressors and ventilator support. Still acidotic. Bicarb had been reduced in light of the concerns for volume overload. Ultimately, Dr. Ortiz recommended prone positioning. When that was done, the patient lost a pulse and a code blue was called. On my arrival, the patient was back in the supine position. He was on three different pressors, including Dobutamine which was added by Dr. Ortiz most recently. He BP would not register on the monitor, but he did have a pulse that could be appreciated on the doppler. He had one amp of Bicarb pushed, one amp of epi pushed. Labs returned with a glucose of 51. I amp of D50 given. Dobutamine was discontinued and an epi drip initiated. Subsequently, BP did improve with a systolic up to 100. Unfortunately, the prognosis is extreme poor in this case and is likely. He cannot adequately be ventilated and multiple pressors are hardly able to maintain BP.
[2019-10-21 06:32] LABS: Band 54 % (5-11); Lymphocytes 9 % (21-51); MDiff Complete? YES; Metamyelocyte 23 % (0-0); Monocytes 2 % (0-10); Myelocyte 1 % (0-0); Neutrophil 11 % (42-75); Nucleated RBC 1 % (0); Platelet Count 45 thou/uL (130-400); Platelet Morphology Comment Appears Decreased; Toxic Granulation SLIGHT; Vacuoles SLIGHT
[2019-10-21] MEDS: Vasopressin 40 UNIT, Admixture Fee 1 EACH in Sodium Chloride 0.9% 100 ML IV SCH (08:41)
[2019-10-21] MEDS: Senokot S 8.6-50 MG TAB PO SCH (08:42)
[2019-10-21] MEDS ORDERED: Polyethylene Glycol 3350 17 GM Packet PER TUBE SCH (09:00)
[2019-10-21] MEDS ORDERED: Prevnar 13-Val Conj/PF 0.5 ML SYRINGE IM ONE (09:00)
[2019-10-21] MEDS ORDERED: Milk Of Magnesia 30 ML UDCUP PO SCH (09:00)
[2019-10-21] MEDS ORDERED: Pantoprazole 40 MG VIAL IVP SCH (09:00)
[2019-10-21] MEDS ORDERED: FLU VACC QS2019-20(6MOS UP)/PF 60 MCG/0.5 ML SYRINGE IM ONE (09:00)
[2019-10-21] MEDS ORDERED: Calcium Chloride 13.6 MEQ in Sodium Chloride 0.9% 100 ML IVPB SCH (09:00)
--- NOTE | 2019-10-21 09:24 | PRG ---
DATE OF SERVICE: 10/21/2019 SERVICE: Pulmonary Medicine. INTERVAL HISTORY: The patient did very poorly overnight. His oxygen requirements dramatically increased. Yesterday, he was on basically 21% FiO2 and over the course of the night, he required increasing PEEP, and 100% FiO2. With this, his oxygen saturations continue to decline. As such, we attempted to prone him, but in the process of doing that, he had a brief PEA arrest. He was put back on into the supine position. His saturations are low, and we will make no additional attempts at pronating him. He cannot provide any additional elements of the history. He is hypotensive, he has been maxed on 4 separate pressors. His blood pressures are marginal at best. PHYSICAL EXAMINATION: VITAL SIGNS: Afebrile, pulse 126, blood pressure 80/52, respirations 37, saturation unknown. HEENT: Normocephalic and atraumatic. Sclerae white. Conjunctivae pink. Oral mucosa is moist without lesions. LUNGS: Excellent air entry. There is no prolonged expiratory phase. Extensive crackling is noted. HEART: Tachycardic. Regular. ABDOMEN: Distended. Firm. There are no bowel sounds. MUSCULOSKELETAL: No cyanosis or clubbing. There is no pitting in the bilateral lower extremities. NEUROLOGIC: Grossly nonfocal. LABORATORY DATA: WBC 4.1, hemoglobin 12.1, platelets 45,000, band count is 54% on top of 11% neutrophils. INR 1.5. D-dimer is elevated. PH 7.25, pCO2 of 24, pO2 of 49, corresponding to a saturation of 80%. Creatinine 4.29 and up trending, BUN 55. Anion gap 21. Potassium 6.1. Lactate is trending upward. AST, ALT, and alkaline phosphatase are elevated. Cortisol is 17.1. Blood cultures growing gram- negative raymundo, also Streptococcus and gram-negative raymundo. IMAGING: Chest x-ray demonstrates endotracheal tube is in good position. There is an enteric catheter coursing below the level of the diaphragm. Endotracheal tube is in good position. Pulmonary vascular congestion is present. There is a megacolon at this point. ASSESSMENT: 1. Acute hypoxic respiratory failure. 2. Septic shock. 3. PEA arrest. 4. Megacolon. 5. Acute kidney injury. DISCUSSION AND PLAN: A surgical consultation will be placed. At this point, the patient is widely unstable. As such, I do not think that he would fare well with an operation. I will switch over his antibiotics to address GI sherwin. This will be with Cipro and Flagyl. The Zosyn and vancomycin will be interrupted. Pulmonary/Critical Care will follow. This patient is unlikely to survive this hospital stay. That being said, we will be aggressive as we can move forward to recover him. CRITICAL CARE TIME: 30 minutes. Job ID: [id number] MTDD
[2019-10-21] MEDS: EPINEPHrine 2 MG, Admixture Fee 1 EACH in Dextrose 5% in Water 250 ML IV SCH ×3 (09:32→16:12)
--- NOTE | 2019-10-21 09:45 | RAD ---
PORTABLE CHEST ONE VIEW: 10/21/2019 6:26 a.m. HISTORY: Respiratory failure. COMPARISON: Exam from the previous day. FINDINGS: Line and tube placements are unchanged in position. The heart size is prominent but stable. Bibasilar opacities are seen. No pneumothoraces are identified. POS: [facility]
[2019-10-21] MEDS: Lorazepam 2 MG/ML VIAL SLOW IVP PRN (10:34)
[2019-10-21 11:18] VITALS: TEMP 100.5
[2019-10-21] MEDS: Sodium Bicarbonate 150 MEQ in Dextrose 5% in Water 1,000 ML IV SCH (11:44)
--- NOTE | 2019-10-21 11:54 | PDOC.HOSPP ---
- Subjective Encounter Date: 10/21/19 Encounter Time: 09:00 Subjective: last night pt had code blue called, he was on maximum pressure support and still he was hypotensive and hypoxic even on vent, when he was kept on prone position he had no BP recordable, so epinephrine drip was started, today he is still hypotensive with maximum support with 3 different vasopressure, he has severe sepsis, positive blood culture, platelet dropped, worsening of renal function with hyperkalemia - Objective Vital Signs & Weight: Vital Signs (12 hours) Temp Pulse Resp BP Pulse Ox 10/21/19 11:38 124 H 83/49 L 10/21/19 10:00 36 H 10/21/19 08:00 100.5 F H 35 H 74 L 10/21/19 07:25 126 H 80/52 L 10/21/19 06:00 32 H 10/21/19 04:00 38 H 10/21/19 02:39 126 H 10/21/19 02:00 37 H 10/20/19 23:54 30 H Weight Weight 108 lb 0.424 oz Most Recent Monitor Data Heart Rate from ECG 123 NIBP 141/57 NIBP BP-Mean 85 Respiration from ECG 37 SpO2 53 I&O: 10/20/19 10/21/19 10/22/19 06:59 06:59 06:59 Intake Total 2918.5 1079 Output Total 640 93 Balance 2278.5 986 Result Diagrams: 10/21/19 05:14 10/21/19 03:49 Additional Labs: Accuchecks 10/21/19 10/21/19 10/21/19 10:11 06:33 05:41 POC Glucose 128 H 143 H 141 H Radiology Reviewed by me: Yes EKG Reviewed by me: Yes (tachycardia) Hospitalist ROS - Review of Systems ROS unobtainable: due to endotracheal tube - Medication Medications: Active Medications Generic Name Dose Route Start Last Admin Trade Name Freq PRN Reason Stop Dose Admin Acetaminophen 650 mg 10/20/19 15:14 10/21/19 02:31 Tylenol PER TUBE 650 mg Q4H PRN Administration Headache/Fever/Mild Pain (1-3) Hydrocortisone Sodium Succinate 50 mg 10/20/19 18:00 10/21/19 11:46 Solu-Cortef IVP 50 mg Q6HR JESS Administration Levetiracetam 500 mg/ Device 100 mls @ 200 mls/hr 10/20/19 21:00 10/21/19 10: 46 IVPB 100 mls BID JESS Administration Norepinephrine Bitartrate 250 mls @ 0 mls/hr 10/20/19 15:14 10/21/19 07:30 Levophed IVPB 250 mls PRN PRN Administration To maintain MAP > 65 Protocol Titrate Vasopressin 40 unit/ 102 mls @ 0 mls/hr 10/20/19 15:45 10/21/19 08:41 Miscellaneous Medication 1 IV 102 mls each/ Sodium Chloride INF JESS Administration Protocol As Directed Metronidazole 500 mg/ Device 100 mls @ 100 mls/hr 10/20/19 18:00 10/21/19 11: 46 IVPB 100 mls Q6HR JESS Administration Sodium Bicarbonate 150 meq/ 1,150 mls @ 30 mls/hr 10/20/19 18:15 10/21/19 11: 44 Dextrose/Water IV Not Given .Q24H JESS Dobutamine HCl/Dextrose 500 mg 250 mls @ 0 mls/hr 10/21/19 04:00 10/21/19 11: 42 / Device IVPB 250 mls INF JESS Administration Protocol As Directed Calcium Chloride 13.6 meq/ 110 mls @ 100 mls/hr 10/21/19 09:00 10/21/19 09:32 Sodium Chloride IVPB 10/21/19 13:00 110 mls NOW JESS Administration Ciprofloxacin/Dextrose 400 mg/ 200 mls @ 200 mls/hr 10/21/19 09:00 10/21/19 09:36 Device IVPB 200 mls Q18H JESS Administration Epinephrine 2 mg/ 252 mls @ 0 mls/hr 10/21/19 09:30 10/21/19 09:32 Miscellaneous Medication 1 IV 252 mls each/ Dextrose/Water INF JESS Administration Protocol Titrate Lorazepam 2 mg 10/20/19 15:17 10/21/19 10:34 Ativan SLOW IVP 11/19/19 15:17 2 mg Q1H PRN Administration Breakthrough agitation Magnesium Hydroxide 30 ml 10/21/19 09:00 10/21/19 08:42 Milk Of Magnesium PO Not Given DAILY JESS Pantoprazole Sodium 40 mg 10/21/19 09:00 10/21/19 09:36 Protonix IVP 40 mg DAILY JESS Administration Polyethylene Glycol 17 gm 10/21/19 09:00 10/21/19 08:42 Miralax PER TUBE Not Given DAILY JESS Senna/Docusate Sodium 1 tab 10/20/19 21:00 10/21/19 08:42 Senokot S PO Not Given BID JESS - Exam General Appearance: ill appearing Eye: PERRL ENT: normocephalic atraumatic ENT - other findings: ET in place Neck: supple, symmetric, no JVD Heart: no murmur Heart - other findings: tachycardia Respiratory - other findings: coarse sound, reduced air entry both side Gastrointestinal - other findings: distended, Extremities: no cyanosis Hosp A/P (1) DIC (disseminated intravascular coagulation) Code(s): D65 - DISSEMINATED INTRAVASCULAR COAGULATION Status: Acute (2) Thrombocytopenia Code(s): D69.6 - THROMBOCYTOPENIA, UNSPECIFIED Status: Acute (3) Acute kidney failure Status: Acute (4) Acute respiratory failure with hypoxia Code(s): J96.01 - ACUTE RESPIRATORY FAILURE WITH HYPOXIA Status: Acute (5) Bacteremia due to Gram-negative bacteria Code(s): R78.81 - BACTEREMIA Status: Acute (6) Hyperkalemia Code(s): E87.5 - HYPERKALEMIA Status: Acute (7) Metabolic acidosis Code(s): E87.2 - ACIDOSIS Status: Acute (8) Septic shock Code(s): A41.9 - SEPSIS, UNSPECIFIED ORGANISM; R65.21 - SEVERE SEPSIS WITH SEPTIC SHOCK Status: Acute (9) Fecal impaction Code(s): K56.41 - FECAL IMPACTION Status: Acute (10) Seizure Code(s): R56.9 - UNSPECIFIED CONVULSIONS Status: Chronic (11) HTN (hypertension) Code(s): I10 - ESSENTIAL (PRIMARY) HYPERTENSION Status: Chronic Qualifiers: Hypertension type: essential hypertension Qualified Code(s): I10 - Essential (primary) hypertension (12) Hypothyroid Code(s): E03.9 - HYPOTHYROIDISM, UNSPECIFIED Status: Chronic Qualifiers: Hypothyroidism type: unspecified Qualified Code(s): E03.9 - Hypothyroidism , unspecified (13) Intellectual disability Code(s): F79 - UNSPECIFIED INTELLECTUAL DISABILITIES Status: Chronic (14) Hypoglycemia Code(s): E16.2 - HYPOGLYCEMIA, UNSPECIFIED Status: Acute - Plan old records reviewed/req, chen catheter, continue antibiotics, respiratory therapy 10/21/19- will DC heparin due to low platelet count, continue epinephrine drip, levophed and vasopressin drip, continue bicarbonate, calcium gluconate given, nephrology and pulmonary following, on cefepime, cipro and vancomycin, continue keppra, his prognosis is very poor, he has no family, his personal care service provider can not make any decision, based on overall situation including his bad quality of life and current serious condition, his prognosis is very poor and even with resussication his chance of survival to baseline is very minimal, so we 2 physician decided to keep him DNR based on his best interest. despite DNR, will continue to aggressively treat with medicine but despite that his is not a surprise.
[2019-10-21] MEDS ORDERED: Cefepime 1 GM in Sodium Chloride 0.9% 100 ML IVPB SCH (12:00)
[2019-10-21] MEDS ORDERED: Vancomycin HCl 1 GM in Premix Bag 1 BAG IVPB SCH (13:00)
[2019-10-21] MEDS ORDERED: Acetaminophen 650 MG Suppository PR PRN (13:04)
--- NOTE | 2019-10-21 14:01 | CON ---
DATE OF CONSULTATION: 10/21/2019 IMPRESSION: 1. Seizure disorder. 2. Septic shock. 3. Renal failure. 4. Respiratory failure. 5. Poor prognosis for survival. PLAN: Continue Keppra 500 mg IV twice a day. HISTORY OF PRESENT ILLNESS: Mr. Quiroga is a 49-year-old black male with a history of severe mental retardation. He was seen by myself in March of this year for breakthrough seizure. Keppra 500 mg twice a day was added and he was taking Depakote 500 mg a day. He has not had any followup. He has been readmitted and is severely ill. He apparently has a possible perforated colon with secondary septic shock and respiratory failure. He is now DNR. The nurses have seen some occasional tremulous movements that last 2 or 3 seconds. No prolonged seizure activity has been witnessed. PHYSICAL EXAMINATION: GENERAL: On exam, he is intubated. VITAL SIGNS: His blood pressure is 93/61 with 4 pressors maxed out, pulse of 120, saturations of 55%. NEUROLOGIC: There is no abnormal movements present. His tone is symmetric. SUMMARY: This is a critically-ill, middle-aged gentleman. He is now in renal failure. Therefore, I would not increase his Keppra dose. I did not see much hope of survival. I will be available if further questions arise. Job ID: [id number]
[2019-10-21 14:16] VITALS: BP 77/42
--- NOTE | 2019-10-21 14:30 | PDOC.EVN ---
Event Note - Event Note Event Note: Case reviewed. Patient has mental retardation and has no family. Currently in Septic shock with multiorgan failure despite multiple pressors. Survival is extremely unlikely. I agree with DNR as recommended by the treating physicians.
--- NOTE | 2019-10-21 16:42 | PRG ---
DATE OF SERVICE: 10/21/2019 SUBJECTIVE: The patient was seen and examined in ICU and intubated. OBJECTIVE: GENERAL: This is a well-built -Hung[place] male, intubated. VITAL SIGNS: Temperature 97.7, heart rate 124, respiratory rate 42, and blood pressure 110/79. HEENT: Intubated. CV: S1 and S2 heard. RESPIRATORY: Clear. GI: Abdomen is soft. MUSCULOSKELETAL: No edema. DERMATOLOGIC: No skin rash. NEUROLOGICAL: Intubated. LABORATORY DATA: Potassium is 6.1, BUN is 55, and creatinine is 4.2. ASSESSMENT AND PLAN: 1. Acute kidney injury on chronic kidney disease, stage 3. Labs were worsening, very poor prognosis. The patient is hypotensive despite being on multiple pressors and is high risk for dialysis. 2. The patient was made DNI. 3. Lactic acidosis. 4. Elevated liver enzymes. 5. Seizure. 6. History of hypertension. 7. Acute hypoxic respiratory failure. 8. Prognosis, extremely guarded. Agree with DNR and not able to tolerate dialysis at this point. Job ID: [id number]
--- NOTE | 2019-10-21 17:13 | PDOC.EVN ---
Event Note - Event Note Event Note: Called by nursing staff to confirm - asystole noted at 16:58, this was an anticipated . Pt evaluated - remains on vent - no audible heart sounds, no palpable radial pulse in either arm, asystole on monitor. Confirmed - time of 16:58
--- NOTE | 2019-10-21 17:19 | CON ---
DATE OF CONSULTATION: 10/21/2019 REASON FOR CONSULTATION: Acute abdomen. CHIEF COMPLAINT: Unobtainable. HISTORY OF PRESENT ILLNESS: The patient is a 49-year-old mentally challenged and nonverbal gentleman, who was brought to the emergency room yesterday. He was acting lethargic. Once he arrived at the emergency room, he was found to have renal failure as well as lactic acidosis and metabolic acidosis. He was hypotensive and Levophed and dopamine were started. Eventually, the patient was intubated. In the interim, the patient is now on 4 vasopressors. His abdomen has become large and distended. I am being consulted for my opinion concerning operative intervention. The rest is all per chart review. ALLERGIES: NONSTEROIDALS, SCOPOLAMINE. MEDICATIONS: 1. Claritin 10 mg. 2. Levothyroxine 50 mcg. 3. Atenolol 25 mg. 4. Pravastatin 20 mg. 5. Amitiza 24 mcg. PAST MEDICAL HISTORY: For mental retardation, hypertension, hypothyroidism, hyperlipidemia, and a seizure disorder. PAST SURGICAL HISTORY: Unknown. PSYCHIATRIC HISTORY: ADHD and bipolar. SOCIAL HISTORY: Lives in a [place]. No tobacco, alcohol, or drug use that is known. FAMILY HISTORY: Unobtainable. REVIEW OF SYSTEMS: Unobtainable. PHYSICAL EXAMINATION: VITAL SIGNS: Demonstrate a temperature of a 103.1, his heart rate is in the 120s, and his blood pressures are variable, but are in the 70s/40s. GENERAL: The patient is intubated without any purposeful movement. HEART: Regular, yet tachycardic. LUNGS: Grossly clear. ABDOMEN: Distended and firm. It is difficult to elicit tenderness or not. No real appreciable bowel sounds. EXTREMITIES: The patient's extremities appear somewhat contracted. NEUROLOGICAL: The patient is 3T. LABORATORY DATA: White blood cell count 4, H and H of 12 and 38, neutrophils of 11, bands of 54, and metamyelocytes of 23. Blood gas demonstrates a pH of 7.2, CO2 of 24, O2 of 49, base deficit of -15, lactic acid of 9.2, creatinine of 4.2. RADIOLOGY DATA: Chest [id number] were independently viewed by me. The radiologist's interpretation was also read as no pneumothorax. There is some opacification bilaterally. Endotracheal tube is in place. ASSESSMENT: Sepsis-the abdomen is distended and firm. The reasons for this are numerous, but could also be from perforation. Given the patient's social history and background, it is not out of the question to have a stercoral ulcer with perforation. Unfortunately, the patient is in such metabolic decline that it would preclude a general anesthetic. Given that, I do not think surgical intervention is in this gentleman's future. Unfortunately, I do not see him recovering from his current clinical situation. PLAN: No surgical intervention. DNR status per primary team. I, furthermore, would recommend comfort care and non escalation of care. Job ID: [id number]
--- NOTE | 2019-10-22 10:14 | CON ---
DATE OF CONSULTATION: 10/20/2019 SERVICE: Pulmonary Medicine. REASON FOR CONSULT: Septic shock. HISTORY OF PRESENT ILLNESS: Patient is a 49-year-old male with past medical history significant for severe mental retardation, and seizure disorder. He was in his usual state of health when his family noticed that he was not behaving appropriately for him. He started standing up and sitting down frequently, which would suggest that he was uncomfortable. Ultimately, he was brought to the emergency department. His blood pressures were extraordinarily low. It looked as though he was not really protecting his airway. As such, he was intubated. He was discovered to have an acute liver injury, acute kidney injury , and severe bandemia with a low white blood count. It is not clear what are sources at this time. He was initiated on broad-spectrum antibiotics and tucked into our ICU. Currently, he cannot provide me with any additional elements of the history. PAST MEDICAL HISTORY: 1. Mental retardation. 2. Seizure disorder. 3. Hypertension. 4. Dyslipidemia. 5. Hypothyroidism. PAST SURGICAL HISTORY: Unknown. SOCIAL HISTORY: Negative for alcohol, tobacco, or illicit drug use. He lives in a halfway. He has no exposure to chemicals, dust, asbestos, or tuberculosis. FAMILY HISTORY: Noncontributory. ALLERGIES: NSAIDS. REVIEW OF SYSTEMS: General; head, ears, eyes, nose, throat; cardiovascular; respiratory; GI; ; musculoskeletal; neurologic; and skin negative, except as mentioned in the HPI. PHYSICAL EXAMINATION: VITAL SIGNS: Afebrile, pulse 90, respirations 23, saturation 100% on 30% FiO2 and a PEEP of 5, and blood pressure shows a MAP of 65 on both vasopressin and Levophed. HEENT: Normocephalic and atraumatic. Sclerae white. Conjunctivae pink. Oral mucosa is moist without lesions. LUNGS: Coarse breath sounds are present bilaterally with rhonchi. No prolonged expiratory phase or wheezing appreciated. HEART: Normal rate. Regular. ABDOMEN: Soft. Distended. Bowel sounds are present. MUSCULOSKELETAL: No cyanosis or clubbing. No pitting in the bilateral lower extremities. LABORATORIES: WBC 1.3, hemoglobin 12.7, and platelets 227,000. His band count is 26%. INR 1.5, D-dimer 7.36. PH 7.23 and improving, pCO2 is 32, PO2 is 52. Lactate has improved from 10 down to 7. Creatinine 3.94. BUN 45, anion gap 24, and bicarb 13. Basic metabolic profile is otherwise unremarkable. Alkaline phosphatase 1.69. CK 230 and BNP 124. Cortisol level is 17. CSF shows high glucose, but normal protein, and very few white blood cells. Valproic acid level is below the assay limit of 12.5. Plasma alcohol, acetaminophen, and salicylates are unremarkable. Influenza A and B are negative. Gastric occult blood was positive. IMAGIN. Chest x-ray demonstrates enteric catheter coursing below the level of the diaphragm. No obvious infiltrate or effusion is present. Endotracheal tube is in good position. The colon is quite enlarged. 2. CT of the brain demonstrates no acute intracranial abnormality. 3. Renal ultrasound demonstrates no evidence of obstructive uropathy. Minimal ascites is present. ASSESSMENT: 1. Acute hypoxic respiratory failure. 2. Septic shock, source unknown. 3. Chronic constipation. 4. Mental retardation. 5. Seizure disorder. ASSESSMENT: We will continue our empiric antibiotics. I will continue the cefepime and the vancomycin for the time being but add Flagyl. We will get aggressive with a bowel regimen. I have initiated his vasopressin and hydrocortisone and discontinue the dopamine. Sedation will be provided for the next 24 hours. We will wean his pressors, consider him for extubation soon. If the source is not identified by tomorrow, a CT of the abdomen and pelvis will be done. CRITICAL CARE TIME: Thirty minutes. Job ID: [id number] MTDD
--- NOTE | 2019-10-22 10:31 | DIS ---
DATE OF ADMISSION: 10/20/2019 DATE OF DISCHARGE: 10/21/2019 DATE OF : 10/21/2019. PRIMARY CAUSE OF : Acute respiratory failure with hypoxia, septic shock due to Escherichia coli, acute kidney failure, disseminated intravascular coagulation, metabolic acidosis. CONTRIBUTING DIAGNOSES: Fecal impaction, seizure disorder, mental retardation. PRIMARY PROCEDURE/OPERATION: Endotracheal intubation, central line placement. RADIOLOGICAL INVESTIGATION: Chest x-ray and lumbar puncture. HOSPITAL COURSE: A 49-year-old male, who has underlying severe mental retardation and nonverbal status, who lives in a [facility]. Over there, the patient was found less responsive, lethargic, and that is why the patient was brought to emergency room. In the emergency room, the patient was not responsive and he did not have any gag reflex and that is why he required endotracheal intubation and central line placement. The patient's blood pressure was very low and he was found with acute kidney failure. He was also having DIC picture. The patient was admitted to ICU. He was having severe metabolic acidosis and his renal function was also worsened. He was on maximum vasopressor support. Despite that, his blood pressure was low and that is why he had code blue during nighttime. He was changed to different vasopressors and he was given bicarbonate drip and maximum treatment for metabolic acidosis and for hypotension as well as broad-spectrum antibiotic therapy for sepsis was given. His blood culture was positive for E coli and Streptococcus. The patient's condition deteriorated and he did not improve. He had and acute kidney failure. Graphic Illustrator, other doctor as well as myself made him DNR because of the patient's poor prognosis and multiorgan failure. The patient also had lumbar puncture, which was unremarkable. His influenza screen was negative. Despite maximum trial of vasopressor, IV fluid, antibiotic, the patient's condition did not improve and the patient had no pulse and no blood pressure at 1658 pm and was pronounced by Dr. Jena Francisco. The patient was removed from ventilator and body was released for . TIME OF : 1657. Job ID: [id number] MTDD
== END 2019-10-21 19:00 | disposition expired | DRG 871 ==
LOC: ERS 09:39 → CCU 14:59
PROVIDERS: ADMIT Internal Medicine; ATTEND Internal Medicine
PROC: 5A1935Z Respiratory Ventilation, Less than 24 Consecutive Hours (ICD-10-PCS; principal; 2019-10-20)
PROC: 009U3ZX Drainage of Spinal Canal, Percutaneous Approach, Diagnostic (ICD-10-PCS; 2019-10-20)
PROC: B01B1ZZ Fluoroscopy of Spinal Cord using Low Osmolar Contrast (ICD-10-PCS; 2019-10-20)
PROC: 02HV33Z Insertion of Infusion Device into Superior Vena Cava, Percutaneous Approach (ICD-10-PCS; 2019-10-20)
PROC: 3E043XZ Introduction of Vasopressor into Central Vein, Percutaneous Approach (ICD-10-PCS; 2019-10-20)
DX: A41.51 Sepsis due to Escherichia coli [E. coli] (principal); R65.21 Severe sepsis with septic shock; J96.01 Acute respiratory failure with hypoxia; D65 Disseminated intravascular coagulation [defibrination syndrome]; N17.9 Acute kidney failure, unspecified; E87.2 Acidosis; K92.2 Gastrointestinal hemorrhage, unspecified; K59.39 Other megacolon; F72 Severe intellectual disabilities; G40.909 Epilepsy, unspecified, not intractable, without status epilepticus; K56.41 Fecal impaction; Z66 Do not resuscitate; B95.5 Unspecified streptococcus as the cause of diseases classified elsewhere; Z88.8 Allergy status to other drugs, medicaments and biological substances; E03.9 Hypothyroidism, unspecified; E78.5 Hyperlipidemia, unspecified; F31.9 Bipolar disorder, unspecified; F90.9 Attention-deficit hyperactivity disorder, unspecified type; E86.9 Volume depletion, unspecified; E87.5 Hyperkalemia; E16.2 Hypoglycemia, unspecified; I12.9 Hypertensive chronic kidney disease with stage 1 through stage 4 chronic kidney disease, or unspecified chronic kidney disease; N18.3 Chronic kidney disease, stage 3 (moderate); Z51.5 Encounter for palliative care
CPT/HCPCS: 36415; 36416; 62270; 70450; 71045; 76770; 80053; 80164; 80307; 82271; 82533; 82550; 82805; 82945; 83605; 83735; 83880; 84100; 84157; 84484; 85007; 85025; 85027; 85060; 85379; 85384; 85610; 85730; 87040; 87077; 87149; 87186; 87804; 89051; 93005; 94002; 94003; C9113; J0171; J0692; J0744; J1250; J1265; J1644; J1720; J1953; J1956; J2060; J3010; J3370; J3490; J7070